=== PATIENT | male | born 1985 ===

== ENCOUNTER 2020-02-17 12:00 | Outpatient (CLI) | payer BC, SELFPAY | END 2020-02-17 12:01 | disposition home or self-care (01) | LOC: SLEEP 02-18 11:14 | PROVIDERS: Visit Provider Physician Assistant | DX: G47.10 Hypersomnia, unspecified (principal) | CPT/HCPCS: G0399 ==

== ENCOUNTER 2020-08-05 13:58 | Emergency (ER) | payer BC, SELFPAY ==
[2020-08-05 14:09] VITALS: BP 185/133; PULSE 83; RESP 16; TEMP 36.3; O2SAT 97; BMI 40.1
--- NOTE | 2020-08-05 14:26 | W.ED.COVID ---
HPI - COVID General: Chief Complaint: COVID symptoms Stated Complaint: sob Time Seen by Provider: 08/05/20 14:15 Triage information: Has fever, cough or shortness of breath. Exposure to COVID + person last 14 days History of Present Illness: HPI Narrative: Patient is a 35-year-old male comes to the ED with upper respiratory symptoms. Patient says that 11 days ago he started developing a fever, cough and shortness of breath. His roommate tested positive for Covid yesterday. Patient also is complaining of having a poor appetite and feeling fatigued. Cough has gotten better over the last 11 days and he says it is dry and nonproductive. Patient has an albuterol inhaler that he is used and it does help the shortness of breath symptoms. COVID 19 common symptoms: positive fever(s), non-productive cough, dyspnea and fatigue; negative chills, productive cough, headache(s), throat pain, nasal congestion, nausea, vomiting or diarrhea COVID 19 other sytmptoms: negative chest pain COVID Results: SARS-CoV-2 RNA (RT-PCR) Pending 08/05/20 14:38 08/05/20 Review of Systems Const: Reports: fever(s), change in appetite (decreased) and fatigue; Denies: chills Eyes: Denies: change in vision or eye discomfort ENMT: Denies: throat pain, odynophagia, nasal discharge or nasal congestion Card: Denies: chest pain, palpitations, edema, swelling of feet/ankles, dyspnea on exertion or orthopnea Resp: Reports: dyspnea and non-productive cough; Denies: productive cough GI: Denies: abdominal pain, nausea, vomiting, diarrhea, constipation or hematochezia : Denies: flank pain, difficulty urinating, dysuria or hematuria Musc: Denies: neck pain, back pain or extremity swelling Skin/Breast: Denies: rash or new lesions Neuro: Denies: headache(s), numbness in extremities or weakness in extremities Physical Exam Const: COMMON NORMALS: no acute distress, patient oriented x3 and alert GENERAL APPEARANCE: cooperative and comfortable NUTRITIONAL APPEARANCE: overweight HENMT: COMMON NORMALS: normocephalic HEAD & SCALP: normocephalic MOUTH: Normal oral and palatal mucosa present THROAT: posterior oropharynx normal and uvula midline Neck/C-Spine: COMMON NORMALS: supple GENERAL: Yes normal visual inspection Resp: COMMON NORMALS: normal respiratory effort, No retractions, No use of accessory muscles and clear to auscultation bilaterally EFFORT & INSPECTION: Yes able to speak in complete sentences, No tachypneic, No respiratory distress, No labored, No Actively coughing and No audible wheezes AUSCULTATION: clear to auscultation bilaterally Cardio: COMMON NORMALS: regular rate, regular rhythm, S1 normal heart sound present, S2 normal heart sound present, No gallops present (Cardio), No clicks present (Cardio), No murmurs present (Cardio) and Peripheral pulses 2+ throughout RATE: regular rate RHYTHM: regular rhythm HEART SOUNDS: S1 normal heart sound present and S2 normal heart sound present PERIPHERAL PULSES: Peripheral pulses 2+ throughout GI: COMMON NORMALS: Normal to inspection, nondistended, normoactive bowel sounds present, Soft to palpation, non-tender and no masses PALPATION: Yes Soft to palpation : COMMON NORMALS: Yes no CVA tenderness BLADDER/KIDNEY EXAM: Yes no CVA tenderness Back/Pelvis: COMMON NORMALS: no CVA tenderness Extremity: COMMON NORMALS: normal to inspection Neuro: COMMON NORMALS: patient oriented x3 and moves all extremities SENSORIUM/ORIENTATION: Yes alert Skin: GENERAL SKIN EXAM: dry skin Course Vital Signs: Vital signs: Vital Signs Temperature 97.3 F L 08/05/20 14:09 Pulse Rate 78 08/05/20 15:39 Respiratory Rate 18 08/05/20 15:39 Blood Pressure 183/85 08/05/20 15:39 Pulse Oximetry 95 08/05/20 15:39 MDM - COVID MDM Narrative: Medical decision making narrative: Patient is a 35-year-old male comes to the ED with cough, shortness of breath and fever. Patient has been having the symptoms for the past 11 days and just found out that his roommate tested positive for Covid. Patient has albuterol inhaler at home that he uses as needed for any wheezing or shortness of breath. Exam shows a patient in no acute respiratory distress. Lungs are clear to auscultation bilaterally. Chest x-ray showed no acute lung findings. Covid [facility] testing was performed and sent out-results pending. Patient was given a dose of Solu-Medrol while here in the ED and sent home with a prescription for prednisone. Return to ED precautions given. Patient was instructed on self quarantine and told that [facility] will contact him in the next 2 to 3 days for results of Covid testing. Follow-up with PCP in 7 to 10 days. Patient understood agree with plan. Imaging Data: CXR: Attestation: I personally reviewed and interpreted this imaging study as follows: Radiologist's impression: [address] [address] XRay Report Signed Patient: Asad Galicia Unit #: [id number] : [id number] Age/Sex: 35 / M ADM Date: 08/05/20 Loc: ER Room/Bed: Attending Dr: Ordering Provider/Ordering MD: Roge Rincon Date of Service: 08/05/20 Procedure(s): XR chest 1V portable [id number] Accession Number(s): [id number] Report Number: [id number] WS: [id number] XR chest 1V portable [id number] REASON FOR EXAM: cough and sob FINDINGS: Diagnostic quality of the examination is limited by quantum mottle, presumably secondary to patient body habitus. Unable to visualize this thoracic spine. The heart and mediastinum are within normal limits. No active pulmonary parenchymal or pleural disease is noted. Bony thorax visualized is intact. XR/XR chest 1V portable [id number] IMPRESSION: No acute chest abnormality. Dictated By: Olegario Jones Jr, MD Signed By: Olegario Jones Jr, MD Signed Date/Time: 08/05/201447 DD/ 1443 COVID Results: SARS-CoV-2 RNA (RT-PCR) Pending 08/05/20 14:38 08/05/20 Discharge Plan Discharge Patient Disposition: Home Clinical Impression: Exposure to severe acute respiratory syndrome coronavirus 2 (SARS-CoV-2), Symptoms of upper respiratory infection (URI) Condition: Stable Prescriptions: New prednisone 50 mg tablet 50 mg PO DAILY 5 Days Qty: 5 RF: 0 No Action albuterol sulfate 90 mcg/actuation HFA aerosol inhaler 2 puff INHALATION QID PRN (Reason: Shortness Of Breath) RF: 0 Discharge Orders: Discharge ED (Routine); Ordered 08/05/20 Ordered By: Roge Rincon Discharge Diet: Regular Discharge Activity: Limit activity as instructed Patient Instructions: Upper Respiratory Infection (ED), Viral Syndrome (ED) Activity Restrictions/Additional Instructions: Follow-up with PCP in the next 2 weeks for reevaluation. Have your PCP check your blood pressure you can start taking the prescribed prednisone tomorrow morning. COVID testing was performed and sent to lab and results will be back in 2 to 3 days. Self quarantine for the next 3 days or up to 12 days pending on COVID testing results. Contact [facility] in 2 to 3 days to get results or [facility] will contact you with results. Take ibuprofen or Tylenol for fevers. Drink plenty of fluids and stay hydrated. Symptom management with [id number] cough and nasal decongestant meds. Return to the ER or your medical provider if condition worsens. Please read and understand discharge instructions. If any questions, please ask. Coding Level of Care Code ED Handkerchief Sample Clerk for Jacob Fwd Exam Comprehensive
--- NOTE | 2020-08-05 14:28 | XR_ITS ---
WS: [id number] XR chest 1V portable [id number] REASON FOR EXAM: cough and sob FINDINGS: Diagnostic quality of the examination is limited by quantum mottle, presumably secondary to patient b deborah habitus. Unable to visualize this thoracic spine. The heart and mediastinum are within normal limits. No active pulmonary parenchymal or pleural disease is noted. Bony thorax visualized is intact. XR/XR chest 1V portable [id number] IMPRESSION: No acute chest abnormality.
[2020-08-05 14:41] VITALS: O2SAT 96
[2020-08-05 15:39] VITALS: BP 183/85; PULSE 78; RESP 18; O2SAT 95
[2020-08-06 20:28] LABS: Quest SARS-CoV-2 RNA DETECTED (NOT DETECTED)
--- NOTE | 2020-08-07 15:40 | PC.NURSE ---
Pt called and notified of positive COVID result.
== END 2020-08-05 15:40 | disposition home or self-care (01) ==
PROVIDERS: Emergency Provider Physician Assistant
DX: U07.1 COVID-19 (principal)
CPT/HCPCS: 12345; 71045; 87635; 96372; 99281; 99283; J2930